=== PATIENT | female | born 1995 | race Caucasian/White ===

== ENCOUNTER 2017-08-19 14:37 | Emergency (ER) | payer OTHER ==
[2017-08-19] MEDS ORDERED: Sodium Chloride 0.9% 1,000 ML IV ONE (15:12)
[2017-08-19] MEDS ORDERED: Ondansetron 4 MG/2 ML SDV IV ONE (15:12)
[2017-08-19] MEDS ORDERED: GI Cocktail Oral Solution 30 ML PO ONE (15:12)
--- NOTE | 2017-08-19 15:13 | EDM.PDOC ---
ED HPI GENERAL MEDICAL PROBLEM - General Chief Complaint: Gastrointestinal Problem Stated Complaint: HARD TIME BREATHING, FEELS WEAK [id number] Time Seen by Provider: 08/19/17 15:07 Source of Information: Reports: Patient History Limitations: Reports: No Limitations - History of Present Illness INITIAL COMMENTS - FREE TEXT/NARRATIVE: 22 yo white Female c/o SOB w/ Nausea since this AM . Pt. states she drink alcohol last PM Onset: Today Onset Date: 08/19/17 Onset Time: 08:00 Duration: Hour(s): Location: Reports: Abdomen, Generalized Severity: Moderate Improves with: Reports: None Worsens with: Reports: None Associated Symptoms: Reports: Loss of Appetite, Nausea/Vomiting Abdomen Pain Score (Numeric/FACES): 5 - Related Data Allergies Allergy/AdvReac Type Severity Reaction Status Date / Time No Known Allergies Allergy Verified 08/19/17 14:54 Home Meds: Home Meds Baclofen [Baclofen] 10 mg PO DAILY 08/19/17 [History] DULoxetine HCl [Duloxetine HCl] 60 mg PO DAILY 08/19/17 [History] Desogestrel-Ethinyl Estradiol [Juleber 28 Day Tablet] 1 tab PO DAILY 08/19/17 [ History] Gabapentin [Neurontin] 100 mg PO DAILY 08/19/17 [History] Past Medical History - Past Surgical History HEENT Surgical History: Reports: Adenoidectomy, Tonsillectomy, Other (See Below) Other HEENT Surgeries/Procedures: wisdom teeth Social & Family History - Tobacco Use Smoking Status *Q: Never Smoker - Caffeine Use Caffeine Use: Reports: Coffee, Energy Drinks, Soda - Recreational Drug Use Recreational Drug Use: No ED ROS GENERAL - Review of Systems Review Of Systems: See Below Constitutional: Reports: No Symptoms, Weakness, Fatigue, Decreased Appetite HEENT: Reports: No Symptoms Respiratory: Reports: Shortness of Breath Cardiovascular: Reports: No Symptoms Endocrine: Reports: No Symptoms GI/Abdominal: Reports: Abdominal Pain (epigastric area) : Reports: No Symptoms Musculoskeletal: Reports: No Symptoms Skin: Reports: No Symptoms Neurological: Reports: No Symptoms Psychiatric: Reports: No Symptoms Hematologic/Lymphatic: Reports: No Symptoms Immunologic: Reports: No Symptoms ED EXAM, GENERAL - Physical Exam Exam: See Below Exam Limited By: No Limitations General Appearance: Alert, WD/WN, No Apparent Distress Eye Exam: Bilateral Eye: EOMI, PERRL Ears: Normal External Exam Nose: Normal Inspection Throat/Mouth: Normal Inspection, Normal Lips Head: Atraumatic, Normocephalic Neck: Normal Inspection, Supple, Non-Tender Respiratory/Chest: No Respiratory Distress, Lungs Clear, Normal Breath Sounds, No Accessory Muscle Use, Chest Non-Tender Cardiovascular: Normal Peripheral Pulses Peripheral Pulses: 2+: Radial (L), Radial (R), Femoral (L), Femoral (R) GI/Abdominal: Normal Bowel Sounds, Tender (epigastric ) Back Exam: Normal Inspection, Full Range of Motion Extremities: Normal Inspection, Normal Range of Motion, Non-Tender Neurological: Alert, Oriented, CN II-XII Intact Psychiatric: Normal Affect, Normal Mood Skin Exam: Warm, Dry, Intact Lymphatic: No Adenopathy Course - Vital Signs Last Recorded V/S: Last Vital Signs Temp 36.6 C 08/19/17 14:49 Pulse 93 08/19/17 14:49 Resp 16 08/19/17 14:49 BP 144/98 H 08/19/17 14:49 Pulse Ox 100 08/19/17 14:49 - Orders/Labs/Meds Orders: Active Orders 24 hr Category Date Time Status CULTURE URINE [RM] Stat Lab 08/19/17 16:20 Uncollected cefTRIAXone [Rocephin] 1 gm Med 08/19/17 16:21 Active Sodium Chloride 0.9% [Normal Saline] 50 ml IV ONETIME Medication Orders Ceftriaxone Sodium 1 gm/ (Sodium Chloride) 50 mls @ 100 mls/hr IV ONETIME ONE Stop: 08/19/17 16:50 Last Admin: 08/19/17 16:30 Dose: 100 mls/hr Labs: Laboratory Tests 08/19/17 08/19/17 08/19/17 Range/Units 15:25 15:25 15:29 WBC 11.5 H (5.0-10.0) 10^3/uL RBC 4.18 L (4.2-5.4) 10^6/uL Hgb 13.2 (12.0-16.0) g/dL Hct 39.8 (37.0-47.0) % MCV 95.2 (80-100) fL MCH 31.6 (27.0-34.0) pg MCHC 33.2 (33.0-35.0) g/dL Plt Count 287 (150-450) 10^3/uL Neut % (Auto) 83.5 H (42.2-75.2) % Lymph % (Auto) 13.1 L (20.5-50.1) % [place] % (Auto) 3.0 (2-8) % Eos % (Auto) 0.2 L (1.0-3.0) % Baso % (Auto) 0.2 (0.0-1.0) % Sodium 141 (135-145) mmol/L Potassium 3.8 (3.6-5.0) mmol/L Chloride 105 (101-111) mmol/L Carbon Dioxide 25.0 (21.0-31.0) mmol/L Anion Gap 14.8 BUN 14 (7-18) mg/dL Creatinine 0.8 (0.6-1.3) mg/dL Est Cr Clr Drug Dosing 85.76 mL/min Estimated GFR (MDRD) > 60 BUN/Creatinine Ratio 17.50 Glucose 89 (74-105) mg/dL Calcium 9.3 (8.4-10.2) mg/dl Total Bilirubin 0.7 (0.2-1.0) mg/dL AST 27 (10-42) IU/L ALT 23 (10-60) IU/L Alkaline Phosphatase 52 (42-121) IU/L Total Protein 7.7 (6.7-8.2) g/dl Albumin 4.2 (3.2-5.5) g/dl Globulin 3.5 Albumin/Globulin Ratio 1.20 Urine Color (YELLOW) Urine Appearance (CLEAR) Urine pH (5.0-9.0) Ur Specific [place] (1.005-1.030) Urine Protein (NEGATIVE) Urine Glucose (UA) (NEGATIVE) Urine Ketones (NEGATIVE) Urine Occult Blood (NEGATIVE) Urine Nitrite (NEGATIVE) Urine Bilirubin (NEGATIVE) Urine Urobilinogen (0.2-1.0) mg/dL Ur Leukocyte Esterase (NEGATIVE) Urine RBC /HPF Urine WBC (0-5/HPF) /HPF Ur Epithelial Cells /HPF Urine Bacteria (0-FEW/HPF) /HPF Urine Mucus /LPF Urine HCG, Qual Negative Urine Opiates Screen (NEGATIVE) Ur Oxycodone Screen (NEGATIVE) Urine Methadone Screen (NEGATIVE) Ur Barbiturates Screen (NEGATIVE) U Tricyclic Antidepress (NEGATIVE) Ur Phencyclidine Scrn (NEGATIVE) Ur Amphetamine Screen (NEGATIVE) U Methamphetamines Scrn (NEGATIVE) Urine MDMA Screen (NEGATIVE) U Benzodiazepines Scrn (NEGATIVE) Urine Cocaine Screen (NEGATIVE) U Marijuana (THC) Screen (NEGATIVE) 08/19/17 08/19/17 Range/Units 15:29 15:29 WBC (5.0-10.0) 10^3/uL RBC (4.2-5.4) 10^6/uL Hgb (12.0-16.0) g/dL Hct (37.0-47.0) % MCV (80-100) fL MCH (27.0-34.0) pg MCHC (33.0-35.0) g/dL Plt Count (150-450) 10^3/uL Neut % (Auto) (42.2-75.2) % Lymph % (Auto) (20.5-50.1) % [place] % (Auto) (2-8) % Eos % (Auto) (1.0-3.0) % Baso % (Auto) (0.0-1.0) % Sodium (135-145) mmol/L Potassium (3.6-5.0) mmol/L Chloride (101-111) mmol/L Carbon Dioxide (21.0-31.0) mmol/L Anion Gap BUN (7-18) mg/dL Creatinine (0.6-1.3) mg/dL Est Cr Clr Drug Dosing mL/min Estimated GFR (MDRD) BUN/Creatinine Ratio Glucose (74-105) mg/dL Calcium (8.4-10.2) mg/dl Total Bilirubin (0.2-1.0) mg/dL AST (10-42) IU/L ALT (10-60) IU/L Alkaline Phosphatase (42-121) IU/L Total Protein (6.7-8.2) g/dl Albumin (3.2-5.5) g/dl Globulin Albumin/Globulin Ratio Urine Color Yellow (YELLOW) Urine Appearance Slightly cloudy (CLEAR) Urine pH 7.0 (5.0-9.0) Ur Specific [place] 1.025 (1.005-1.030) Urine Protein 30 H (NEGATIVE) Urine Glucose (UA) Negative (NEGATIVE) Urine Ketones Negative (NEGATIVE) Urine Occult Blood Negative (NEGATIVE) Urine Nitrite Negative (NEGATIVE) Urine Bilirubin Negative (NEGATIVE) Urine Urobilinogen 0.2 (0.2-1.0) mg/dL Ur Leukocyte Esterase Trace H (NEGATIVE) Urine RBC 0-5 /HPF Urine WBC 5-10 H (0-5/HPF) /HPF Ur Epithelial Cells Many H /HPF Urine Bacteria Moderate H (0-FEW/HPF) /HPF Urine Mucus Many H /LPF Urine HCG, Qual Urine Opiates Screen Negative (NEGATIVE) Ur Oxycodone Screen Negative (NEGATIVE) Urine Methadone Screen Negative (NEGATIVE) Ur Barbiturates Screen Negative (NEGATIVE) U Tricyclic Antidepress Negative (NEGATIVE) Ur Phencyclidine Scrn Negative (NEGATIVE) Ur Amphetamine Screen Negative (NEGATIVE) U Methamphetamines Scrn Negative (NEGATIVE) Urine MDMA Screen Negative (NEGATIVE) U Benzodiazepines Scrn Negative (NEGATIVE) Urine Cocaine Screen Negative (NEGATIVE) U Marijuana (THC) Screen Negative (NEGATIVE) Meds: Medications Generic Name Dose Route Start Last Admin Trade Name Freq PRN Reason Stop Dose Admin Ceftriaxone Sodium 1 gm/ 50 mls @ 100 mls/hr 08/19/17 16:21 08/19/17 16:30 Sodium Chloride IV 08/19/17 16:50 100 mls/hr ONETIME ONE Administration Discontinued Medications Generic Name Dose Route Start Last Admin Trade Name Freq PRN Reason Stop Dose Admin Al Hydroxide/Mg Hydroxide 30 ml 08/19/17 15:12 08/19/17 15:33 Gi Cocktail PO 08/19/17 15:13 30 ml ONETIME ONE Administration Sodium Chloride 1,000 mls @ 999 mls/hr 08/19/17 15:12 08/19/17 15:38 Normal Saline IV 08/19/17 16:12 999 mls/hr .BOLUS ONE Administration Ondansetron HCl 4 mg 08/19/17 15:12 08/19/17 15:34 Zofran IV 08/19/17 15:13 4 mg ONETIME ONE Administration Departure - Departure Time of Disposition: 16:34 Disposition: Home, Self-Care 01 Condition: Good Clinical Impression: UTI, Urinary tract infectious disease - Discharge Information Referrals: PCP,None [Primary Care Provider] - Forms: ED Department Discharge Additional Instructions: Rest Increase intake of Fluids ( Cranberry Juice / Water) Take the Oral Antibiotic as prescribed and complete: AMOXIL 500mg BID # 20 F/U w/ PCP in 1 week for urine re-check - My Orders Last 24 Hours: My Active Orders 08/19/17 16:20 CULTURE URINE [RM] Stat 08/19/17 16:21 cefTRIAXone [Rocephin] 1 gm Sodium Chloride 0.9% [Normal Saline] 50 ml IV ONETIME - Assessment/Plan Last 24 Hours: My Active Orders 08/19/17 16:20 CULTURE URINE [RM] Stat 08/19/17 16:21 cefTRIAXone [Rocephin] 1 gm Sodium Chloride 0.9% [Normal Saline] 50 ml IV ONETIME
[2017-08-19 15:57] LABS: CHLORIDE,CL 105 mmol/L (101-111); SODIUM,NA 141 mmol/L (135-145)
[2017-08-19] MEDS ORDERED: cefTRIAXone 1 GM in Sodium Chloride 0.9% 50 ML IV ONE (16:21)
== END 2017-08-19 17:15 | disposition home or self-care (01) ==
LOC: DL.ED 14:37
DX: N39.0 Urinary tract infection, site not specified (principal); Z79.899 Other long term (current) drug therapy
CPT/HCPCS: 36415; 80053; 80305; 81001; 81025; 85025; 87086; 96361; 96365; 96375; 99284; A9270; J0696; J2405; J7030; J7050

== ENCOUNTER 2019-04-02 20:40 | Observation (INO) | payer OTHER ==
[2019-04-02 21:38] LABS: ANION GAP 14.3; CHLORIDE,CL 103 mmol/L (101-111); SODIUM,NA 135 mmol/L (135-145)
[2019-04-02] MEDS: Oxytocin/Normal Saline 30 UNIT/500 ML BAG IV SCH (22:15)
[2019-04-02] MEDS ORDERED: HYDROmorphone 1 MG/ML Syringe IVPUSH ONE (22:33)
[2019-04-02] MEDS ORDERED: Lactated Ringers 1,000 ML IV ONE (22:48)
[2019-04-02] MEDS ORDERED: HYDROmorphone 1 MG/ML Syringe IVPUSH PRN (22:52)
[2019-04-02] MEDS ORDERED: Ondansetron 4 MG/2 ML SDV IV PRN (22:54)
[2019-04-02] MEDS ORDERED: Acetaminophen/oxyCODONE 325-5 MG Tab PO PRN (22:56)
--- NOTE | 2019-04-03 01:08 | EDM.PDOC ---
ED HPI GENERAL MEDICAL PROBLEM - General Chief Complaint: [employer] Problem Stated Complaint: LOSING A LOT OF BLOOD-MISCARRIAGE Time Seen by Provider: 04/02/19 21:00 Source of Information: Reports: Patient, RN History Limitations: Reports: No Limitations - History of Present Illness INITIAL COMMENTS - FREE TEXT/NARRATIVE: ED with c/o heavy vaginal bleeding. Patient 2 US on Sunday. No FHT and small gestational size, Seen by Dr Browne yesterday. On cytotec every 6-8 hours as needed. Last at 830 tonight. Saturated large pad x 3 between 6 and 7 tonight. States feels like blood gushing when standing. Dizzy if moves to fast. No fever or chills . LMP 01/02. Brought specimen cup with passed fetus Treatments [employer]: Reports: NSAIDS Lower Abdominal Pain Score (Numeric/FACES): 9 - Related Data Allergies Allergy/AdvReac Type Severity Reaction Status Date / Time No Known Allergies Allergy Verified 04/02/19 22:31 Home Meds: Home Meds Gabapentin [Neurontin] 600 mg PO DAILY 08/19/17 [History] FLUoxetine [PROzac] 20 mg PO DAILY 04/03/19 [History] Misoprostol [Cytotec] 200 mcg PO ASDIRECTED 04/03/19 [History] PNV95/Ferrous Fumarate/FA [ Vitamin Tablet] 1 each PO DAILY 04/03/19 [ History] buPROPion HCl [Wellbutrin Xl] 150 mg PO DAILY 04/03/19 [History] Past Medical History HEENT History: Reports: None [employer] History: Reports: , Spontaneous - Past Surgical History HEENT Surgical History: Reports: Adenoidectomy, Tonsillectomy, Other (See Below) Other HEENT Surgeries/Procedures: wisdom teeth Social & Family History - Family History Family Medical History: Noncontributory - Tobacco Use Smoking Status *Q: Never Smoker Second Hand Smoke Exposure: No - Caffeine Use Caffeine Use: Reports: None - Recreational Drug Use Recreational Drug Use: No ED ROS GENERAL - Review of Systems Review Of Systems: ROS reveals no pertinent complaints other than HPI. ED EXAM - Physical Exam Exam: See Below Exam Limited By: No Limitations General Appearance: Alert, No Apparent Distress Eye Exam: Bilateral Eye: EOMI Ears: Normal External Exam Nose: Normal Inspection, Nasal Flaring Throat/Mouth: Normal Inspection, Normal Voice Head: Atraumatic, Normocephalic Neck: Normal Inspection Respiratory/Chest: No Respiratory Distress, Lungs Clear GI/Abdominal Exam: Normal Bowel Sounds, Soft, Tender (Female) Exam: Normal External Exam, Tissue Present in Cervix/Vagina, Vaginal Bleeding ( moderate in vaginal vault. large clot tissue, easily removed from vault with ring forecep. ) Extremities: Normal Inspection, Normal Range of Motion Neurological: Alert, Oriented Skin Exam: Warm, Dry, Normal Color Course - Vital Signs Last Recorded V/S: Last Vital Signs Temp 98.4 F 04/02/19 23:30 Pulse 76 04/02/19 23:30 Resp 16 04/02/19 23:30 BP 105/64 04/02/19 23:30 Pulse Ox 99 04/02/19 23:30 - Orders/Labs/Meds Orders: Active Orders 24 hr Category Date Time Status Orthostatic Vital Signs [RC] ASDIRECTED Care 04/02/19 21:04 Active Nothing Per Oral Diet [DIET] Diet 04/02/19 Breakfast Active OB Follow Up 1st Gest [US] Routine Exams 04/03/19 08:00 Ordered CBC W/O DIFF,HEMOGRAM [HEME] Routine Lab 04/03/19 06:00 Ordered Acetaminophen/oxyCODONE [Percocet 325-5 MG] Med 04/02/19 22:56 Active 1 tab PO Q4H PRN HYDROmorphone [Dilaudid] Med 04/02/19 22:52 Active 1 mg IVPUSH Q3H PRN Ondansetron [Zofran] Med 04/02/19 22:54 Active 4 mg IV Q4H PRN Oxytocin/Normal Saline [Pitocin in NS 30 UNIT/500 ML] Med 04/02/19 22:00 Active 30 unit in 500 ml IV CONTINUOUS Medication Orders Hydromorphone HCl (Dilaudid) 1 mg IVPUSH Q3H PRN PRN Reason: Pain Oxytocin/Sodium Chloride (Pitocin In Ns 30 Unit/500 Ml) 30 unit in 500 mls @ 100 mls/hr IV CONTINUOUS RIVER; Protocol Last Admin: 04/02/19 22:15 Dose: 100 mls/hr, 100 mls/hr Ondansetron HCl (Zofran) 4 mg IV Q4H PRN PRN Reason: Nausea/Vomiting Oxycodone/Acetaminophen (Percocet 325-5 Mg) 1 tab PO Q4H PRN PRN Reason: Pain Labs: Laboratory Tests 04/02/19 04/02/19 04/02/19 Range/Units 21:11 21:11 21:11 WBC 9.8 (5.0-10.0) 10^3/uL RBC 3.80 L (4.2-5.4) 10^6/uL Hgb 12.4 (12.0-16.0) g/dL Hct 37.2 (37.0-47.0) % MCV 97.9 (80-100) fL MCH 32.6 (27.0-34.0) pg MCHC 33.3 (33.0-35.0) g/dL Plt Count 229 (150-450) 10^3/uL Neut % (Auto) 57.8 (42.2-75.2) % Lymph % (Auto) 33.8 (20.5-50.1) % [place] % (Auto) 6.5 (2-8) % Eos % (Auto) 1.7 (1.0-3.0) % Baso % (Auto) 0.2 (0.0-1.0) % Sodium 135 (135-145) mmol/L Potassium 3.3 L (3.6-5.0) mmol/L Chloride 103 (101-111) mmol/L Carbon Dioxide 21.0 (21.0-31.0) mmol/L Anion Gap 14.3 BUN 12 (7-18) mg/dL Creatinine 0.7 (0.6-1.3) mg/dL Est Cr Clr Drug Dosing 106.09 mL/min Estimated GFR (MDRD) > 60 BUN/Creatinine Ratio 17.14 Glucose 80 (74-105) mg/dL Calcium 8.2 L (8.4-10.2) mg/dl Total Bilirubin 0.8 (0.2-1.0) mg/dL AST 23 (10-42) IU/L ALT 19 (10-60) IU/L Alkaline Phosphatase 53 (42-121) IU/L Total Protein 6.8 (6.7-8.2) g/dl Albumin 3.9 (3.2-5.5) g/dl Globulin 2.9 Albumin/Globulin Ratio 1.34 Blood Type B POSITIVE Gel Antibody Screen Negative Meds: Medications Generic Name Dose Route Start Last Admin Trade Name Freq PRN Reason Stop Dose Admin Hydromorphone HCl 1 mg 04/02/19 22:52 Dilaudid IVPUSH Q3H PRN Pain Oxytocin/Sodium Chloride 30 unit in 500 mls @ 100 mls/hr 04/02/19 22:00 04/02 22:15 Pitocin In Ns 30 Unit/500 Ml IV 100 mls/hr CONTINUOUS RIVER 100 mls/hr Administration Protocol Ondansetron HCl 4 mg 04/02/19 22:54 Zofran IV Q4H PRN Nausea/Vomiting Oxycodone/Acetaminophen 1 tab 04/02/19 22:56 Percocet 325-5 Mg PO Q4H PRN Pain Discontinued Medications Generic Name Dose Route Start Last Admin Trade Name Freq PRN Reason Stop Dose Admin Hydromorphone HCl 1 mg 04/02/19 22:33 04/02/19 22:42 Dilaudid IVPUSH 04/02/19 22:34 1 mg ONETIME ONE Administration Oxytocin 10 unit/ Lactated 1,001 mls @ 150 mls/hr 04/02/19 21:45 04/03/19 00: 05 Ringer's IV 04/03/19 04:25 Not Given ASDIRECTED ONE Lactated Ringer's 1,000 mls @ 999 mls/hr 04/02/19 22:48 04/02/19 22:50 Ringers, Lactated IV 04/02/19 23:48 999 mls/hr BOLUS ONE Administration - Re-Assessments/Exams Free Text/Narrative Re-Assessment/Exam: TC Dr Browne . Patient to be admitted for observation of continued bleeding following miscarriage ,repeat hemoglobin in am. Initiate on Pitocin and IVF. Departure - Departure Time of Disposition: 22:15 Disposition: Refer to Observation Condition: Good Clinical Impression: Incomplete - Discharge Information *PRESCRIPTION DRUG MONITORING PROGRAM REVIEWED*: No *COPY OF PRESCRIPTION DRUG MONITORING REPORT IN PATIENT SARAH: Not Applicable Referrals: PCP,None [Primary Care Provider] - Forms: ED Department Discharge - My Orders Last 24 Hours: My Active Orders 04/02/19 21:04 Orthostatic Vital Signs [RC] ASDIRECTED 04/02/19 22:00 Oxytocin/Normal Saline [Pitocin in NS 30 UNIT/500 ML] 30 unit in 500 ml IV CONTINUOUS - Assessment/Plan Last 24 Hours: My Active Orders 04/02/19 21:04 Orthostatic Vital Signs [RC] ASDIRECTED 04/02/19 22:00 Oxytocin/Normal Saline [Pitocin in NS 30 UNIT/500 ML] 30 unit in 500 ml IV CONTINUOUS
[2019-04-03] MEDS: Oxytocin/Normal Saline 30 UNIT/500 ML BAG IV SCH (03:05)
--- NOTE | 2019-04-03 09:43 | US ---
CLINICAL HISTORY: 23-year-old female. Recent "miscarriage" (LMP 02 January 2019). Please check for products of conception. INTERPRETATION: Midline uterus slightly enlarged and retroverted with a 2 cm diameter homogeneously dense central endometrium. No blood or retained products of conception identified in the lumen of the endometrial canal. No gestational sac or pole. No myometrial fibroid mass lesion. Symmetric ovaries with physiologic follicular type cysts in the periphery (largest cyst left ovary approximately 2 x 3 cm). Left ovary measures 3.02 cm L x 2.04 cm W x 1.39 cm AP diameter. Right ovary measures 3.5 cm L x 5.17 cm W x 1.79 cm AP. CONCLUSION: No retained products of conception identified.
--- NOTE | 2019-04-04 09:38 | HP ---
HISTORY OF PRESENT ILLNESS: This patient is a 23-year-old 1, para 0 patient, referred to us from [facility]. Please see my dictation from the clinic of 04/01/2019. Unfortunately, she did have a demise and the size was approximately 8 weeks 5 days' gestation on one ultrasound and 9 weeks 3 days' gestation measurements on another ultrasound. Those 2 ultrasounds were done on 03/28/2019. The patient is known to be Rh positive. She has had some slight cramping and slight spotting off and on for this past 6 to 7 days or so. When I saw her in the clinic on 04/01/2019, the patient and I had decided to proceed with Cytotec medical evacuation of the uterus. This was commenced on Sunday morning, 04/02/2019. The patient and I have kept in close contact on the telephone and she did have my personal cell phone number. She did come to the emergency room when the bleeding got much heavier on the evening of 04/02/2019, and also, she was having rather significant cramping. The patient was admitted to the floor from the emergency room and I did see the patient at about 10 p.m. on 04/02/2019. The cervix was open slightly. There was a moderate amount of blood in the vaginal vault. The uterus felt about 5- to 6-week size. Her vital signs remained very stable with blood pressures in the 110/58 range and 105/53 range and pulse rates of 79. Her admission hemoglobin was 12.4. PHYSICAL EXAMINATION: Lungs: Clear. Heart: Regular rhythm without murmur. Abdomen: Soft and slightly tender in each lower quadrant. Extremities: Negative. Pelvic: As described above. IMPRESSION: We felt that the patient indeed was in the process of miscarriage and since her bleeding was actually much less than it had been earlier and since her vital signs were very stable and her hemoglobin was 12.4, that we would observe her for a few more hours and I felt clinically there was perhaps a 30% chance the patient might need a D and C during the night or early a.m. on 04/03/2019. Our plan was also to repeat her hemoglobin in the morning as well as obtain OB ultrasound to rule out any products of conception. The patient has had a stable night thus far. We will continue to observe her very closely and the permit has been signed for D and C if necessary. All of her questions have been answered. [facility] /[id number] cc: Sherrill Zeng NP [facility]
--- NOTE | 2019-04-04 09:47 | DISCH ---
She was admitted on 04/02/2019 for observation and discharged home today on 04/03/2019. HISTORY OF PRESENT ILLNESS: Yfn has had a very stable night. Her bleeding that she had earlier has definitely considerably subsided during the night. Her cramping is much less and she only has minimal slight cramping this morning on rounds. Her vital signs have remained very stable and have actually improved. Her hemoglobin early this morning on 04/03/2019 reveals it to be 11.2 and she did have considerable crystalloid fluids during the night, so she probably has some degree of hemodilution. The patient did have uterine ultrasound earlier this morning that I have closely reviewed along with radiologist, Dr. Reagan Hawkins, and it is felt that no products of conception are seen inside the uterus. The patient has a slight amount of bleeding as we would expect still. She has a slight amount of cramping, but in general is doing much better. The patient's blood type is Rh positive. IMPRESSION: I have had a long discussion at the bedside with the patient this morning and we do feel that this represents a spontaneous complete miscarriage at 9 weeks 3 days' gestation by size and the patient was at approximately 12 weeks' gestation by dates. She is Rh positive and does not need RhoGAM. She is very stable and it appears at this time that D and C is unnecessary and not appropriate. I did inform her that clinically, there is perhaps a 10% chance that she still could need a D and C in the future if there was any changing or worsening of bleeding or cramping. Other discharge instructions were to avoid intercourse for approximately 3 weeks and to call us once if any fever, unusual pain, unusual discharge, or questions or problems whatsoever. DISCHARGE MEDICATIONS: She will resume her Cytotec 200 mcg p.o. every 6 to 8 hours for the next 2 days. She also will resume her gabapentin and her fluoxetine and her Wellbutrin that she is on. She will have healthy well- balanced nutritional measures as well as adequate hydration and continue to get adequate rest. She is discharged now in good condition. Her diet is regular. I have emphasized the importance to see me in the clinic for a post hospital followup exam on April 14 or . The patient states that her work schedule might possibly not permit that to happen. I did urge her to please give me a telephone progress report if she does not come in for an appointment. She does have my personal cell phone number and will keep us informed of course. She will also keep any other on-call doctor informed while I am out of town. FINAL DIAGNOSIS: Spontaneous complete miscarriage. I have also asked her to avoid getting over the next 3 to 4 months if at all possible. She may possibly try to conceive again in July. [facility] /[id number] cc: ANDRIA Tirado [facility]
== END 2019-04-03 11:15 | disposition home or self-care (01) ==
LOC: DL.ED 20:40 → DL.MS 21:51
PROVIDERS: ADMIT Obstetrics & Gynecology; ATTEND Obstetrics & Gynecology
DX: O03.9 Complete or unspecified spontaneous abortion without complication (principal); Z79.899 Other long term (current) drug therapy
CPT/HCPCS: 36415; 76816; 80053; 85025; 85027; 86850; 86900; 86901; 96365; 96366; 96375; 96376; 99284; J1170; J2590; J7120; G0378

== ENCOUNTER 2019-10-26 10:21 | Emergency (ER) | payer BC, OTHER ==
[2019-10-26] MEDS: Ondansetron 4 MG/2 ML SDV IV ONE (11:09)
[2019-10-26 11:18] LABS: CHLORIDE,CL 105 mmol/L (101-111); SODIUM,NA 135 mmol/L (135-145)
--- NOTE | 2019-10-26 12:42 | EDM.PDOC ---
Scribed by Mervat Kebede 10/26/19 1241 for Michel Richardson PA ED HPI GENERAL MEDICAL PROBLEM - General Chief Complaint: Gastrointestinal Problem Time Seen by Provider: 10/26/19 11:00 Source of Information: Reports: Patient, RN, RN Notes Reviewed History Limitations: Reports: No Limitations - History of Present Illness INITIAL COMMENTS - FREE TEXT/NARRATIVE: Patient is a 24-year-old female who presents with nausea that started this A.M. She has body aches today. Diarrhea started last night and today. She is on Amoxicillin due to sinus infection. Patient is 22 weeks . Onset: Today Duration: Getting Worse Location: Reports: Abdomen Quality: Reports: Ache Severity: Moderate Improves with: Reports: None Worsens with: Reports: None Associated Symptoms: Reports: No Other Symptoms - Related Data Allergies Allergy/AdvReac Type Severity Reaction Status Date / Time No Known Allergies Allergy Verified 10/26/19 11:23 Home Meds: Home Meds Gabapentin [Neurontin] 600 mg PO DAILY 08/19/17 [History] FLUoxetine [PROzac] 20 mg PO DAILY 04/03/19 [History] Misoprostol [Cytotec] 200 mcg PO ASDIRECTED 04/03/19 [History] Pnv No.95/Ferrous Fum/Folic AC [ Vitamin Tablet] 1 each PO DAILY [History] buPROPion HCl [Wellbutrin Xl] 150 mg PO DAILY 04/03/19 [History] Past Medical History HEENT History: Reports: None 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 ED EXAM, GI/ABD - Physical Exam Exam: See Below Exam Limited By: No Limitations General Appearance: Alert, WD/WN, No Apparent Distress Eyes: Bilateral: Normal Appearance Ears: Normal External Exam, Normal Canal, Hearing Grossly Normal, Normal TMs Nose: Normal Inspection, Normal Mucosa, No Blood Throat/Mouth: Normal Inspection, Normal Lips, Normal Teeth, Normal Gums, Normal Oropharynx, Normal Voice, No Airway Compromise Head: Atraumatic, Normocephalic Neck: Normal Inspection, Supple, Non-Tender, Full Range of Motion Respiratory/Chest: No Respiratory Distress, Lungs Clear, Normal Breath Sounds, No Accessory Muscle Use, Chest Non-Tender Cardiovascular: Normal Peripheral Pulses, Regular Rate, Rhythm, No Edema, No Gallop, No JVD, No Murmur, No Rub GI/Abdominal Exam: Other (diffuse abdominal pain) (Female) Exam: Deferred Rectal (Female) Exam: Deferred Back Exam: Normal Inspection, Full Range of Motion, NT Extremities: Normal Inspection, Normal Range of Motion, Non-Tender, Normal Capillary Refill, No Pedal Edema Neurological: Alert, Oriented, CN II-XII Intact, Normal Cognition, Normal Gait, Normal Reflexes, No Motor/Sensory Deficits Psychiatric: Normal Affect Skin Exam: Warm, Dry, Intact, Normal Color, No Rash Lymphatic: No Adenopathy Course - Vital Signs Last Recorded V/S: Last Vital Signs Temp 37.0 C 10/26/19 11:17 Pulse 77 10/26/19 11:17 Resp 20 10/26/19 11:17 BP 116/57 L 10/26/19 11:17 Pulse Ox 99 10/26/19 11:17 - Orders/Labs/Meds Orders: Active Orders 24 hr Category Date Time Status CULTURE URINE [RM] Urgent Lab 10/26/19 12:05 Received Labs: Laboratory Tests 10/26/19 10/26/19 10/26/19 Range/Units 10:52 10:52 12:05 WBC 14.1 H (5.0-10.0) 10^3/uL RBC 3.78 L (4.2-5.4) 10^6/uL Hgb 12.4 (12.0-16.0) g/dL Hct 36.3 L (37.0-47.0) % MCV 96.0 (80-100) fL MCH 32.8 (27.0-34.0) pg MCHC 34.2 (33.0-35.0) g/dL Plt Count 243 (150-450) 10^3/uL Neut % (Auto) 88.3 H (42.2-75.2) % Lymph % (Auto) 7.6 L (20.5-50.1) % [place] % (Auto) 3.4 (2-8) % Eos % (Auto) 0.6 L (1.0-3.0) % Baso % (Auto) 0.1 (0.0-1.0) % Sodium 135 (135-145) mmol/L Potassium 4.0 (3.6-5.0) mmol/L Chloride 105 (101-111) mmol/L Carbon Dioxide 20.0 L (21.0-31.0) mmol/L Anion Gap 14.0 BUN 12 (7-18) mg/dL Creatinine 0.6 (0.6-1.3) mg/dL Est Cr Clr Drug Dosing TNP Estimated GFR (MDRD) > 60 BUN/Creatinine Ratio 20.00 Glucose 77 (74-105) mg/dL Calcium 8.1 L (8.4-10.2) mg/dl Total Bilirubin 1.4 H (0.2-1.0) mg/dL AST 48 H (10-42) IU/L ALT 38 (10-60) IU/L Alkaline Phosphatase 58 (42-121) IU/L Total Protein 7.1 (6.7-8.2) g/dl Albumin 3.4 (3.2-5.5) g/dl Globulin 3.7 Albumin/Globulin Ratio 0.92 Urine Color Yellow (YELLOW) Urine Appearance Slightly cloudy (CLEAR) Urine pH 6.0 (5.0-9.0) Ur Specific [place] 1.025 (1.005-1.030) Urine Protein Negative (NEGATIVE) Urine Glucose (UA) Negative (NEGATIVE) Urine Ketones Trace H (NEGATIVE) Urine Occult Blood Negative (NEGATIVE) Urine Nitrite Negative (NEGATIVE) Urine Bilirubin Negative (NEGATIVE) Urine Urobilinogen 0.2 (0.2-1.0) mg/dL Ur Leukocyte Esterase Trace H (NEGATIVE) Urine RBC 0-5 /HPF Urine WBC 0-5 (0-5/HPF) /HPF Ur Epithelial Cells Moderate H (NOT SEEN) /HPF Urine Bacteria Moderate H (0-FEW/HPF) /HPF Urine Mucus Many H (NOT SEEN) /LPF Meds: Medications Discontinued Medications Generic Name Dose Route Start Last Admin Trade Name Freq PRN Reason Stop Dose Admin Ondansetron HCl 4 mg 10/26/19 10:46 10/26/19 11:09 Zofran IV 10/26/19 10:47 4 mg ONETIME ONE Administration - Re-Assessments/Exams Free Text/Narrative Re-Assessment/Exam: 10/26/19 11:13 Polly Jade reported heart tones 130 right at the umbilicus. Departure - Departure Time of Disposition: 12:36 Disposition: DC/Tfer to Acute Hospital 02 Condition: Fair Clinical Impression: Nausea vomiting and diarrhea Leukocytosis Qualifiers: Leukocytosis type: unspecified Qualified Code(s): D72.829 - Elevated white blood cell count, unspecified Qualifiers: Weeks of gestation: 22 weeks Qualified Code(s): Z3A.22 - 22 weeks gestation of - Discharge Information *PRESCRIPTION DRUG MONITORING PROGRAM REVIEWED*: Not Applicable *COPY OF PRESCRIPTION DRUG MONITORING REPORT IN PATIENT SARAH: Not Applicable Referrals: Sherrill Zeng ROLL UP HELPER [Primary Care Provider] - Forms: Interfacility Transfer EMTALA Care Plan Goals: Discussed the examination, lab and history results with Dr. Santiago. Dr. Santiago accepted the patient for continued evaluation and management. The patient will be transported by [facility]. Sepsis Event Note - Focused Exam Vital Signs: Vital Signs Temp Pulse Resp BP Pulse Ox 10/26/19 11:17 37.0 C 77 20 116/57 L 99 Date Exam was Performed: 10/26/19 Time Exam was Performed: 12:36 - My Orders Last 24 Hours: My Active Orders 10/26/19 12:05 CULTURE URINE [RM] Urgent - Assessment/Plan Last 24 Hours: My Active Orders 10/26/19 12:05 CULTURE URINE [RM] Urgent I have read and agree with the documentation that has been completed regarding this visit. By signing this record, I attest that the documentation was completed in my physical presence and is an accurate record of the encounter.
[2019-10-26] MEDS: Sodium Chloride 0.9% 1,000 ML IV SCH (12:52)
== END 2019-10-26 13:10 ==
LOC: DL.OBCHECK 10:21 → DL.ED 10:21 → EDSTATUS 10:29 → DL.ED 13:10
DX: O21.2 Late vomiting of pregnancy (principal); O99.89 Other specified diseases and conditions complicating pregnancy, childbirth and the puerperium; R19.7 Diarrhea, unspecified; O99.112 Other diseases of the blood and blood-forming organs and certain disorders involving the immune mechanism complicating pregnancy, second trimester; D72.829 Elevated white blood cell count, unspecified; Z3A.22 22 weeks gestation of pregnancy
CPT/HCPCS: 36415; 80053; 81001; 85025; 87086; 87804; 96374; 99285; J2405; J7030

== ENCOUNTER 2020-02-16 00:04 | Inpatient (IN) | payer BC, OTHER ==
[2020-02-16] MEDS: Misoprostol 25 MCG (1/4 of 100 MCG) Tab VAG PRN ×3 (01:17→09:38)
[2020-02-16] MEDS ORDERED: Sodium Chloride 0.9% 10 ML Syringe FLUSH PRN (01:22)
[2020-02-16] MEDS ORDERED: Misoprostol 400 MCG (4 X 100 MCG TAB) RECTAL PRN (01:22)
[2020-02-16] MEDS ORDERED: Tranexamic Acid 1,000 MG in Sodium Chloride 0.9% 100 ML IV PRN (01:22)
[2020-02-16] MEDS ORDERED: Carboprost Tromethamine 250 MCG/1 ML Amp IM PRN (01:22)
[2020-02-16] MEDS ORDERED: Methylergonovine 0.2 MG/1 ML Amp IM PRN (01:22)
[2020-02-16] MEDS ORDERED: Lactated Ringers 1,000 ML IV ONE ×2 (01:22→10:25)
[2020-02-16] MEDS ORDERED: Lidocaine 1% 30 ML SDV INJECT PRN (01:22)
[2020-02-16] MEDS ORDERED: Acetaminophen 325 MG Tab PO PRN ×2 (01:22)
[2020-02-16] MEDS ORDERED: Ondansetron 4 MG/2 ML SDV IVPUSH PRN ×3 (01:22→15:46)
[2020-02-16] MEDS ORDERED: Oxytocin/Normal Saline 30 UNIT/500 ML BAG IV SCH ×2 (01:30)
[2020-02-16] MEDS ORDERED: fentaNYL 100 MCG/2 ML SDV IVPUSH PRN (02:02)
[2020-02-16] MEDS ORDERED: hydrOXYzine HCl 25 MG Tab PO ONE (02:02)
--- NOTE | 2020-02-16 02:03 | OBOUT ---
DATE: 02/16/2020 DATE AND TIME OF NST: 02/16/2020. Time 0022 to 0042. REASON FOR NST: 1. Intrauterine at 40-1/7 weeks. 2. GBS negative. 3. History of low-lying placenta, resolved. 4. History of mood disorder, on fluoxetine and Wellbutrin during the . 5. History of chronic pain, on gabapentin. Use of this medicine has been described to her in the past. 6. G2, P0-0-1-0. NST INTERPRETATION: During this time period, heart tone baseline is approximately 130 to 135, and at least two 15 x 15 beats per minute accelerations, making this strip reactive as well as reassuring. Tocometer reveals no obvious evidence of contractions. Blood pressure is 126/72, heart rate 98, the patient is afebrile, temperature 98.6. ASSESSMENT: 1. Nonstress test, reactive and reassuring. 2. Tocometer without contractions. Shortly after NST was performed, verbal and written consents were obtained for Cytotec administration and subsequent 25 mcg of Cytotec was placed vaginally with her cervix being 1.5 cm, 80% effaced, 0 to -1 station, vertex suspected, and bag of water was felt. PLAN: Please see admit history and physical done in through [facility]. For this, records were called for, reviewed, and supplemented by patient history. Review of systems was fully reviewed today and otherwise notable for mild cramping over the weekend. Otherwise, no contractions, spotting, bleeding, leaking or other concerns elicited. [facility] /[id number]
--- NOTE | 2020-02-16 11:33 | PN ---
DATE: 02/16/2020 SUBJECTIVE: The patient has had some back pain issues. She has been sitting in the tub off and on. OBJECTIVE: Vital Signs: Blood pressure 129/68, heart rate 97, heart tones in the 130s range and felt to be reactive and reassuring. Tocometer reveals contractions every 3 to 4 minutes. VAGINAL EXAM: Reveals her to be 2+ cm, 80% effaced, 0 station, vertex suspected, and 25 mcg of Cytotec was placed vaginally. ASSESSMENT AND PLAN: Intrauterine at 40 and 1/7 weeks by 10 and 2/7 weeks ultrasound, GBS negative, G2, P0-0-1-0, with history of low lying placenta that has resolved. Mood disorder, on Wellbutrin and Prozac, as well as history of chronic low back pain, on gabapentin, and discussed use of this in both at [facility], myself, and recently. She is now status post Cytotec x3 with the 3rd dose given as above. We will continue to follow clinically and closely. She is making some cervical change and we will follow thereafter. The patient understands and agrees with the above treatment plan. [facility] /[id number]
[2020-02-16] MEDS ORDERED: Oxytocin/Normal Saline 30 UNIT/500 ML BAG ONE ×2 (14:09→15:09)
[2020-02-16] MEDS ORDERED: Acetaminophen/oxyCODONE 325-5 MG Tab PO PRN (14:25)
[2020-02-16] MEDS ORDERED: ceFAZolin 2 GM in Premix Bag 1 BAG IV ONE (14:25)
[2020-02-16] MEDS ORDERED: Citric Acid/Sodium Citrate Solution 30 ML Cup PO ONE (14:25)
[2020-02-16] MEDS ORDERED: diphenhydrAMINE 50 MG/ML SDV IVPUSH PRN ×2 (14:25→15:46)
[2020-02-16] MEDS ORDERED: ePHEDrine 50 MG/ML SDV IVPUSH PRN (14:25)
[2020-02-16] MEDS ORDERED: Naloxone 2 MG/2 ML Syringe IVPUSH PRN ×2 (14:25→15:46)
[2020-02-16] MEDS ORDERED: Lactated Ringers 1,000 ML IV SCH (14:30)
[2020-02-16] MEDS ORDERED: Propofol 200 MG/20 ML SDV IV ONE (14:30)
[2020-02-16] MEDS ORDERED: Succinylcholine 200 MG/10 ML MDV IV ONE (14:30)
[2020-02-16] MEDS ORDERED: Tranexamic Acid 1,000 MG in Sodium Chloride 0.9% 100 ML IV ONE (14:45)
[2020-02-16] MEDS ORDERED: Methylergonovine 0.2 MG/1 ML Amp ONE ×2 (14:49)
[2020-02-16] MEDS ORDERED: Misoprostol 400 MCG (4 X 100 MCG TAB) ONE (14:53)
[2020-02-16] MEDS ORDERED: Carboprost Tromethamine 250 MCG/1 ML Amp ONE (14:54)
[2020-02-16] MEDS ORDERED: Methylergonovine 0.2 MG/1 ML Amp IM ONE (14:55)
[2020-02-16] MEDS ORDERED: Misoprostol 400 MCG (4 X 100 MCG TAB) RECTAL ONE (14:57)
[2020-02-16] MEDS ORDERED: Carboprost Tromethamine 250 MCG/1 ML Amp IM ONE (15:00)
[2020-02-16] MEDS ORDERED: fentaNYL 250 MCG/5 ML SDV IV ONE (15:00)
--- NOTE | 2020-02-16 15:09 | PN ---
DATE: 02/16/2020 SUBJECTIVE: The patient has been feeling her contractions, they have been off and on. OBJECTIVE: heart tones in the 140s range, felt to be reactive and reassuring. Tocometer difficult to read contractions lying on her side. Vaginal exam reveals her to be 3 cm, 80% to 90% effaced. Artificial rupture of membranes done after discussion with the patient yielding bloody-type fluid. ASSESSMENT AND PLAN: 1. Intrauterine at 40 and 1/7 weeks by 10 and 2/7 weeks ultrasound, now status post Cytotec x2 and artificial rupture of membranes as above. 2. Vaginal bleeding. This is possibly related to cervical friability and cervical change versus possible serious etiology such as vasa previa or abruption. At this point in time, I did discuss with patient making her n.p.o., calling the OR crew to be available and ready in stat fashion and following status very closely as well as her vaginal bleeding. New chux was placed and we will re-evaluate serially and continue to follow clinically and closely at this point in time. The patient understands and agrees with the above treatment plan. [facility] /[id number] [place]
[2020-02-16] MEDS ORDERED: Ondansetron 4 MG/2 ML SDV IV ONE (15:15)
--- NOTE | 2020-02-16 15:15 | PN ---
DATE: 02/16/2020 SUBJECTIVE: The patient's pain suddenly got worse, rated 8/10, felt in the lower abdomen, worse with her contractions as well as at other times. OBJECTIVE: heart tones variability has decreased, baseline has increased, and there has been at least 2 late decelerations in the last 20 minutes. Vaginal exam reveals her to be 3 cm, 80% effaced. Clot noted in the vaginal vault and more bleeding was noted on the Chux. ASSESSMENT AND PLAN: Intrauterine at 40 and 1/7 weeks by 10 and 2/7 weeks with abnormal vaginal bleeding and concerns with status. Therefore, I have discussed with the patient proceeding with primary low transverse section. I did discuss the risks, benefits, alternatives, and complications of procedure including, but not limited to, infection, bleeding, damage to internal organs such as bowel, bladder, tubes, uterus, ovaries, and sometimes fetus rarely needing a blood transfusion or further surgery; and even rarer maternal or . She understands, agrees, and wishes to proceed. Verbal consent was obtained, and questions were answered. At the current time of dictation, there was another patient in the second stage of labor. We are trying to manage this prior to going to the OR due to staffing concerns and we will proceed cautiously. We will continue watching status closely at this point in time. Did discuss with the patient potentially doing a spinal versus general anesthetic as well based on status and with concerns will do general anesthesia. [facility] /[id number] [place]
[2020-02-16] MEDS ORDERED: Ketorolac 30 MG/ML SDV IVPUSH ONE (15:30)
[2020-02-16] MEDS ORDERED: diphenhydrAMINE 25 MG Tab PO PRN (15:46)
[2020-02-16] MEDS: Morphine PF 30 MG/30 ML PCA Vial IV SCH (16:08)
[2020-02-16] MEDS: Simethicone 80 MG Tab.Chew PO SCH ×2 (19:48→21:40)
[2020-02-16] MEDS: Ketorolac 30 MG/ML SDV IVPUSH SCH (21:36)
[2020-02-16] MEDS: Docusate Sodium 100 MG Cap PO PRN (21:40)
[2020-02-16] MEDS: Lactated Ringers 1,000 ML IV SCH (21:49)
[2020-02-17] MEDS: Ketorolac 30 MG/ML SDV IVPUSH SCH ×2 (03:02→09:39)
[2020-02-17] MEDS: Lactated Ringers 1,000 ML IV SCH (05:00)
[2020-02-17] MEDS: Morphine PF 30 MG/30 ML PCA Vial IV SCH (05:28)
--- NOTE | 2020-02-17 08:45 | PN ---
DATE: 02/17/2020 Postoperative day #1. SUBJECTIVE: The patient is tolerating p.o. Has ambulated. Blue is in place. Pain is being controlled with BAND MASTER. The patient had mild episode of lightheadedness last night getting up from the bathroom. Denies any today. She denies any chest pain, shortness of breath. OBJECTIVE: Vital Signs: Temperature 97, heart rate 96, blood pressure 106/63. Lungs: Clear to auscultation bilaterally. Heart: S1 and S2. Regular rate and rhythm. Abdomen: Firm uterus around the umbilicus. Aquacel dressing has mild shadowing less than 2 cm on the left side of the dressing. Extremities: JOANNA hose and SCDs are on. I's and O's; did require a bolus and then within 2 hours had 350 mL urine out this morning at 6 a.m. Pending is a CBC. Last night, CBC revealed white cell count 24, hemoglobin 9.9, platelets 229, compared to predelivery hemoglobin of 11.5. ASSESSMENT: Postop day #1, status post primary low transverse , 2 layer uterine closure, due to nonreassuring status with confirmed placental abruption and complicated by uterine atony and hemorrhage with an EBL of 1000 mL requiring Hemabate, Methergine, Cytotec, TXA, and a B- London/box stitch placed in with surgery. PLAN: CBC today. We will follow up for any symptoms. Continue on BAND MASTER with goal to get her off this today and switch to oral medicines, and follow clinically and closely. Plans were discussed with patient, she understands and agrees with the above treatment plan. [facility] /[id number] [place]
[2020-02-17] MEDS: Docusate Sodium 100 MG Cap PO PRN ×2 (09:38→19:33)
[2020-02-17] MEDS: Prenatal Multivitamin with Calcium/Folic Acid/Iron Tab PO SCH (09:38)
[2020-02-17] MEDS: Simethicone 80 MG Tab.Chew PO SCH ×4 (09:38→21:37)
--- NOTE | 2020-02-17 11:36 | OR ---
DATE: 02/16/2020 PREOPERATIVE DIAGNOSIS: 1. Intrauterine at 40 and 1/7 weeks by 10 and 2/7 weeks ultrasound. 2. Abnormal vaginal bleeding. 3. Concerns with status becoming nonreassuring. 4. Group B Streptococcus negative. 5. History of low-lying posterior placenta - resolved on ultrasounds. 6. Mood disorder, on Wellbutrin and Prozac during the . 7. History of chronic lower back pain, on gabapentin with use in and this has been discussed with her in the past as well as side effects related to her child and for use in . 8. G2, P0-0-1-0. POSTOPERATIVE DIAGNOSES: 1. Intrauterine at 40 and 1/7 weeks by 10 and 2/7 weeks ultrasound - delivered. 2. Abnormal vaginal bleeding. 3. Concerns with status becoming nonreassuring. 4. Group B Streptococcus negative. 5. History of low-lying posterior placenta - resolved on ultrasounds. 6. Mood disorder, on Wellbutrin and Prozac during the . 7. History of chronic lower back pain, on gabapentin with use in and this has been discussed with her in the past as well as side effects related to her child and for use in . 8. G2, P0-0-1-0. 9. Placental abruption - suspected. 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 11.Uterine atony requiring Methergine, Hemabate IM x1 each, 800 mcg of Cytotec rectally, and 1 g of tranexamic acid, as well as a B-London box stitch placed with procedure. 12. hemorrhage with EBL of 1000 mL. PROCEDURES PERFORMED: NST followed by Cytotec x3, artificial rupture of membranes, and then subsequent primary low transverse with 2-layer uterine closure involving a B-London box stitch for uterine atony. ANESTHESIA: General. ESTIMATED BLOOD LOSS: 1000 mL. IV FLUIDS: 800 mL. URINE OUTPUT: 500 mL and clear yellow. START TIME: 1444. UTERINE INCISION: 1445. DELIVERY: 1446. STOP: 1517. FINDINGS: Female, score and weight pending with placental abruption suspected with vaginal bleeding noted with delivery with some minor old blood clot after and with delivery of the placenta as well as what appeared to be a developing Couvelaire uterus posterior lower uterine region. OPHTHALMIC MEDICAL ASSISTANT: Shawna Craft MD DESCRIPTION OF PROCEDURE IN DETAIL: After proper consent was obtained, the patient was brought to the operating room where general anesthesia was induced. Prior to this, abdomen was prepped and draped in a normal sterile fashion. The patient was placed in supine position with left lateral tilt. After anesthesia gave the okay, skin incision was made on the lower abdomen in transverse Pfannenstiel-type fashion. This was carried down the fascia and scored in the midline. Subcutaneous tissue was raked laterally bluntly and fascial incision was extended transversely as well as superior and inferiorly bluntly the rectus and pyramidalis muscles that were dissected from the fascia. Rectus muscles were then in the midline with blunt technique. Abdominal cavity was entered with blunt technique and incision was extended superiorly and inferiorly with blunt technique. Vishal O large retractor was then introduced and used. Vesicouterine peritoneum was identified, incised in transverse fashion with Metzenbaum scissors, and bladder flap was made digitally. A curvilinear incision was made on the lower uterine segment. Uterus was entered sharply. Clear fluid returned. Uterine incision was extended in a transverse fashion using blunt technique. vertex was then delivered through the incision followed by rest of the infant without difficulty. Mouth and nares were suctioned. Cord was doubly clamped and cut and infant was brought over to the team. Then, approximately 10 mL of cord blood was obtained for labs. Placenta then delivered with gentle cord traction and fundal massage with mild old blood clot noted with delivery of the placenta. Uterine cavity was then cleared of all blood clots and debris with lap sponge. Gonzalez clamps were used to grasp the uterine incision. This was closed in a running locked fashion and tied at lateral margins with 1-0 Vicryl. Uterine atony was noted during this time period, and Methergine, Hemabate, and Cytotec were called for. Methergine was given first, followed by Cytotec and Hemabate as well as tranexamic acid during this time. Second imbricating layer was then applied, tied at lateral margins with 1-0 Vicryl. First inspection of the uterine incision revealed hemostasis. Uterus was exteriorized for better visualization and posterior wall of external uterus revealed developing couvelaire uterus confirming abruption. Due to atony, and despite fundal massage, the above interventions as well as Pitocin increased per protocol, continued uterine atony was noted and decision was then made to proceed with B-London box type stitch. This was placed using 1 - 0 Vicryl and tightened down and placed without difficulty. Second inspection of the uterine incision revealed hemostasis as uterus was returned to the abdomen after box stitch was placed. Paracolic gutters were then cleared of all blood clots and debris with lap sponge. Anterior cul-de-sac was irrigated copiously and all blood clots were removed. Third and final inspection of the uterine incision and anterior cul-de - sac revealed hemostasis. Rectus muscles were then reapproximated in midline with [id number] stitch using 1-0 Vicryl. Subfascial tissue was found to be hemostatic and fascia was closed in a running fashion and tied at lateral margins with 0 looped PDS. Subcutaneous tissue was irrigated copiously. Hemostasis was reassured. Skin was reapproximated with medium henok with care involving the right lateral portion of the incision where tattoo was noted and was required to cut through with Pfannenstiel-type incision with stat nature of the . Semi firm uterus was noted at the umbilicus after this. Aquacel dressing was applied. Sponge, lap, and needle counts were correct. The patient received 2 g of Ancef preoperatively, Pitocin per protocol, as well as other medicines as above and will receive [employer] and possibly Toradol at the conclusion of the case for pain control. Mother and infant are currently stable at the time of dictation. [facility] /[id number] [place]
--- NOTE | 2020-02-17 13:12 | PN ---
DATE: 02/17/2020 Postop day #1, status post primary low-transverse . SUBJECTIVE: The patient noted lightheadedness today with rising. Did have stand there for a while before she felt better. She had lightheadedness yesterday. OBJECTIVE: Hemoglobin returns at 7.5. ASSESSMENT AND PLAN: Postoperative day #1, status post primary low-transverse section with 2-layer uterine closure complicated by uterine atony, hemorrhage, and now anemia of acute blood loss with symptoms. Therefore, we will treat with transfusion of 2 units of packed red blood cells. She had a type and cross match yesterday, so we will give those 2 units today. I did discuss the risks, benefits, alternatives, and complications involving blood transfusion, and verbal and written consents were obtained and questions were answered. We will proceed with blood transfusion when blood was ready and available. [facility] /[id number]
[2020-02-17] MEDS: Acetaminophen/oxyCODONE 325-5 MG Tab PO PRN ×2 (15:35→19:35)
[2020-02-17] MEDS: Ibuprofen 800 MG Tab PO PRN (19:33)
[2020-02-17] MEDS: Gabapentin 300 MG Cap PO SCH (22:09)
[2020-02-18] MEDS: Acetaminophen/oxyCODONE 325-5 MG Tab PO PRN ×6 (00:17→22:05)
[2020-02-18] MEDS: Ibuprofen 800 MG Tab PO PRN ×3 (05:57→22:04)
[2020-02-18] MEDS: Gabapentin 300 MG Cap PO SCH ×2 (08:39→18:19)
[2020-02-18] MEDS: Simethicone 80 MG Tab.Chew PO SCH ×4 (08:39→22:03)
[2020-02-18] MEDS: Ferrous Sulfate 325 MG Tab PO SCH (08:39)
[2020-02-18] MEDS: Docusate Sodium 100 MG Cap PO PRN ×2 (08:39→22:03)
[2020-02-18] MEDS: Prenatal Multivitamin with Calcium/Folic Acid/Iron Tab PO SCH (08:39)
[2020-02-18] MEDS: FLUoxetine 10 MG Cap PO SCH (08:39)
[2020-02-18] MEDS ORDERED: Oxytocin/Normal Saline 30 UNIT/500 ML BAG IV ONE (12:04)
--- NOTE | 2020-02-18 19:02 | PN ---
DATE: 02/18/2020 Postop day #2, status post primary low-transverse with 2-layer uterine closure with multiple interventions for atony including a B-London box stitch. SUBJECTIVE: The patient feels better after blood transfusion yesterday. She denies any chest pain, shortness of breath, or lightheadedness. She is tolerating p.o., was ambulating, urinating, and passing flatus. OBJECTIVE: Vital Signs: Temperature 98, heart rate 99, blood pressure 104/48, and respiratory rate 18. Lungs: Clear to auscultation bilaterally. Heart: S1, S2. Regular rate and rhythm. Genitourinary: Firm uterus, -1, below umbilicus. Aquacel dressing has minimal shadowing noted yesterday, but nothing increasing in size, frequency. Extremities: No calf pain. LABORATORY DATA: Today; white cell count 9.8, hemoglobin 9.4, and platelets 168. Hemoglobin yesterday was 7.5, with symptoms and was given 2 units of packed red blood cells at that time. ASSESSMENT AND PLAN: 1. Postoperative day #2, status post primary low-transverse section. 2. Uterine atony with multiple interventions required, please see previous notes, and associated with the below. 3. Anemia of acute blood loss, that was symptomatic with severe anemia. 2 units of packed red blood cells were given yesterday. Hemoglobin has return to a more stable state, and the patient is asymptomatic. We will follow for symptoms at this point in time. Recheck CBC tomorrow. Otherwise, we will continue to follow clinically and closely. In addition, we will start the patient on iron, and I did discuss with her use of her medicines including gabapentin, Wellbutrin, and fluoxetine in terms of breast feeding. Despite this, she wants to continue with and will follow clinically and closely in regard to her and herself. [facility] /[id number]
[2020-02-19] MEDS: Ibuprofen 800 MG Tab PO PRN (06:08)
[2020-02-19] MEDS: Acetaminophen/oxyCODONE 325-5 MG Tab PO PRN (06:08)
--- NOTE | 2020-02-19 08:42 | DISCH ---
ADMITTING DIAGNOSES: 1. Intrauterine at 40 and 1/7 weeks by 10 and 2/7 weeks ultrasound. 2. Group B Streptococcus negative. 3. History of low-lying posterior placenta, resolved on ultrasound. 4. Mood disorder, on Wellbutrin and Prozac. Discussed these medication adverse effects with as well as breast feeding. 5. History of pain, chronically in lower back. Gabapentin use during the discussed with patient as well as with breast feeding. 6. G2, P0-0-1-0. DISCHARGE DIAGNOSES: 1. Intrauterine at 40 and 1/7 weeks by 10 and 2/7 weeks ultrasound. 2. Group B Streptococcus negative. 3. History of low-lying posterior placenta, resolved on ultrasound. 4. Mood disorder, on Wellbutrin and Prozac. Discussed these medication adverse effects with as well as breast feeding. 5. History of pain, chronically in lower back. Gabapentin use during the discussed with patient as well as with breast feeding. 6. G2, P0-0-1-0. 7. Abnormal vaginal bleeding. 8. Concerns with status. 9. Placental abruption confirmed in surgery. 10.Uterine atony. Noted with , requiring Hemabate, Methergine, Cytotec, tranexamic acid and a B-London box-type stitch. 11.Posterior uterine wall developing Couvelaire uterus noted. 12.Anemia of acute blood loss, requiring 2 units of packed red blood cells with symptomatic anemia noted. 13. hemorrhage with EBL approximately 1000 mL. PROCEDURES PERFORMED: NST, Cytotec x3, artificial rupture of membranes and then subsequent primary low transverse with 2-layer uterine closure involving the above procedures with B London/box-type stitch. HISTORY OF PRESENT ILLNESS: Please see H and P. SUMMARY OF HOSPITAL COURSE: The patient was admitted on the above date with above diagnoses, underwent above procedures. After artificial rupture of membranes had significant amount of bleeding and concerns with status, was brought to the OR where she had a primary low transverse with 2-layer uterine closure with the B London box stitch under general anesthesia, complicated by uterine atony, given the above meds. Please see operative report for further details. EBL was 1000 mL. Postoperative day 1 and 2, patient was followed closely. Hemoglobin did drop down to a low of 7.5 on 02/17/2020. She was having symptoms. She did receive 2 units of packed red blood cells and hemoglobin was stable on 02/17 at 9.4, and on date of discharge at 9.2 with no symptoms noted. Date of discharge evaluation; the patient was tolerating p.o., was ambulating, urinating, passing flatus, and requesting discharge. PHYSICAL EXAMINATION: Vital Signs: Last set of vitals updated and listed in chart; temperature 98.4, heart rate 92, respiratory rate 18, blood pressure 101/58. Lungs: Clear to auscultation bilaterally. Heart: S1 and S2. Regular rate and rhythm. Genitourinary: Firm uterus, -2 below umbilicus. Aquacel dressing, mild tracing, but nothing new over the last 2 days. Extremities: Trace to 1+ pitting edema to proximal tibia. No calf pain. CONDITION ON DISCHARGE COMPARED TO CONDITION ON ADMISSION: Improved. DISCHARGE INSTRUCTIONS: 1. Diet as tolerated. 2. Activity: No lifting more than 20 pounds. No sit-ups or straining. Pelvic rest for the next 6 week with immediate return to fertility discussed with the patient. 3. Reason to return or go to the emergency room were discussed with the patient in detail including, but not limited to temperature greater than 100.4, foul-smelling discharge, red or tender breasts, or increased vaginal bleeding. DISCHARGE MEDICATIONS: 1. [id number] ibuprofen for pain. 2. Percocet 5/325, 1 to 2 q.6 hours p.r.n., #30. 3. Colace 100 mg b.i.d. p.r.n. 4. Iron sulfate 325 b.i.d. x6 weeks. Dispensed q.s., no refills. FOLLOWUP: 6 weeks . Discussed importance of followup in regard to her as well as ramifications of not doing so. She understands and agrees with the above treatment plan. Please see discharge paperwork for further details. [facility] /[id number]
[2020-02-19] MEDS: Gabapentin 300 MG Cap PO SCH (12:01)
[2020-02-19] MEDS: Ferrous Sulfate 325 MG Tab PO SCH (12:01)
[2020-02-19] MEDS: Prenatal Multivitamin with Calcium/Folic Acid/Iron Tab PO SCH (12:01)
[2020-02-19] MEDS: FLUoxetine 10 MG Cap PO SCH (12:02)
[2020-02-19] MEDS: Simethicone 80 MG Tab.Chew PO SCH (12:02)
== END 2020-02-19 10:30 | disposition home or self-care (01) | DRG 540 ==
LOC: DL.OBCHECK 00:04 → DL.OB 01:22 → OBSVTOIN 14:46
PROVIDERS: ADMIT Family Medicine; ATTEND Family Medicine
PROC: 10D00Z1 Extraction of Products of Conception, Low, Open Approach (ICD-10-PCS; principal; 2020-02-16)
PROC: 10907ZC Drainage of Amniotic Fluid, Therapeutic from Products of Conception, Via Natural or Artificial Opening (ICD-10-PCS; 2020-02-16)
PROC: 3E033VJ Introduction of Other Hormone into Peripheral Vein, Percutaneous Approach (ICD-10-PCS; 2020-02-16)
PROC: 30233N1 Transfusion of Nonautologous Red Blood Cells into Peripheral Vein, Percutaneous Approach (ICD-10-PCS; 2020-02-17)
DX: O48.0 Post-term pregnancy (principal); O45.93 Premature separation of placenta, unspecified, third trimester; Z37.0 Single live birth; O99.344 Other mental disorders complicating childbirth; F39 Unspecified mood [affective] disorder; O99.02 Anemia complicating childbirth; D62 Acute posthemorrhagic anemia; O72.1 Other immediate postpartum hemorrhage; Z3A.40 40 weeks gestation of pregnancy
CPT/HCPCS: 36415; 36430; 51702; 59409; 85027; 86850; 86900; 86901; 86920; 86922; 94010; A9270-GY; J0330; J0690; J1885; J2210; J2274; J2405; J2590; J2704; J3010; J7050; J7120; P9016

== ENCOUNTER 2020-09-03 12:45 | Emergency (ER) | payer BC, OTHER ==
[2020-09-03] MEDS ORDERED: Cyclobenzaprine 10 MG Tab PO ONE (13:14)
[2020-09-03] MEDS ORDERED: Orphenadrine 60 MG/2 ML Inj IM ONE (13:16)
[2020-09-03] MEDS ORDERED: Dexamethasone 4 MG/ML SDV IM ONE (13:16)
[2020-09-03] MEDS ORDERED: Ketorolac 30 MG/ML SDV IM ONE (13:17)
--- NOTE | 2020-09-03 13:18 | EDM.PDOC ---
ED HPI GENERAL MEDICAL PROBLEM - General Chief Complaint: Back Pain or Injury Stated Complaint: [id number] THREW BACK OUT Time Seen by Provider: 09/03/20 13:01 Source of Information: Reports: Patient, RN, RN Notes Reviewed History Limitations: Reports: No Limitations - History of Present Illness INITIAL COMMENTS - FREE TEXT/NARRATIVE: She presents to the ED via personal vehicle with complaints of lower back pain. Per patient report, the pain started Sunday (09/01/2020) and has progressively worsened since that time. 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 The patient reports a history of a bulging disc in the L4-L5 space for which she receives corticosteroid injections via Dr. Mays. She has not received these injections recently as she delivered her first baby in February 2020. The patient states she has an appointment with her primary care provider at [facility] this (09/09/2020) for a referral back to Dr. Mays. The patient states the pain originates in her midline lower back and radiates bilaterally into her anterior lower legs, stopping at the knee. She denies any recent injury to her back, including falls. She denies abdominal pain, dysuria, hematuria, melena, hematochezia, saddle paresthesia, or changes to her bowel and bladder pattern. The patient states she took 1 dose of "left over" Toradol from her last bout of acute back pain, which provided mild alleviation of symptoms. She denies cigarette smoking, alcohol use, or illicit drug use. Upper Back Pain Score (Numeric/FACES): 8 - Related Data Allergies Allergy/AdvReac Type Severity Reaction Status Date / Time ethinyl estradiol Allergy Other Verified 02/13/20 14:54 [From Previfem] norgestimate [From Previfem] Allergy Other Verified 02/13/20 14:54 Home Meds: Home Meds Gabapentin [Neurontin] 300 mg PO TID 08/19/17 [History] FLUoxetine [PROzac] 20 mg PO DAILY 04/03/19 [History] Pnv No.95/Ferrous Fum/Folic AC [ Vitamin Tablet] 1 each PO DAILY 04/03/19 [History] buPROPion HCL [Wellbutrin Xl] 150 mg PO DAILY 04/03/19 [History] Past Medical History - Past Health History Medical/Surgical History: Denies Medical/Surgical History HEENT History: Reports: None Cardiovascular History: Reports: None, Heart Murmur Respiratory History: Reports: None Gastrointestinal History: Reports: None Genitourinary History: Reports: UTI, Recurrent 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: , 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 Musculoskeletal History: Reports: Other (See Below) Other Musculoskeletal History: herniated disc Neurological History: Reports: None Psychiatric History: Reports: Anxiety, Depression Endocrine/Metabolic History: Reports: None Hematologic History: Reports: None Oncologic (Cancer) History: Reports: None Dermatologic History: Reports: None - Infectious Disease History Infectious Disease History: Reports: None - Past Surgical History Head Surgeries/Procedures: Reports: None HEENT Surgical History: Reports: Adenoidectomy, Tonsillectomy, Other (See Below) Other HEENT Surgeries/Procedures: wisdom teeth Social & Family History - Family History Family Medical History: Noncontributory - Tobacco Use Tobacco Use Status *Q: Never Tobacco User Second Hand Smoke Exposure: No - Caffeine Use Caffeine Use: Reports: Coffee - Recreational Drug Use Recreational Drug Use: No ED ROS GENERAL - Review of Systems Review Of Systems: Comprehensive ROS is negative, except as noted in HPI. ED EXAM,LOWER BACK PAIN/INJURY - Physical Exam Exam: See Below Exam Limited By: No Limitations General Appearance: Alert, WD/WN, Mild Distress Respiratory/Chest: No Respiratory Distress, Lungs Clear, Normal Breath Sounds, No Accessory Muscle Use, Chest Non-Tender Cardiovascular: Normal Peripheral Pulses, Regular Rate, Rhythm, No Edema, No Gallop, No JVD, No Murmur, No Rub GI/Abdominal: Normal Bowel Sounds, Soft, Non-Tender, No Distention, No Mass, Pelvis Stable Back Exam: Decreased Range of Motion, Muscle Spasm, Vertebral Tenderness. No: CVA Tenderness (L), CVA Tenderness (R) Extremities: Normal Inspection, Normal Range of Motion, No Pedal Edema, Normal Capillary Refill Neurological: Alert, Normal Mood/Affect, CN II-XII Intact, No Motor/Sensory Deficits Skin Exam: Warm, Dry, Intact, Normal Color, No Rash. No: Diaphoretic, Ecchymosis, Erythema, Mottled, Pallor, Petechiae, Rash Course - Vital Signs Last Recorded V/S: Last Vital Signs Temp 97.9 F 09/03/20 12:59 Pulse 80 09/03/20 12:59 Resp 18 09/03/20 12:59 BP 108/65 09/03/20 12:59 Pulse Ox 100 09/03/20 12:59 - Orders/Labs/Meds Meds: Medications Discontinued Medications Generic Name Dose Route Start Last Admin Trade Name Goyo PRN Reason Stop Dose Admin Cyclobenzaprine HCl 10 mg 09/03/20 13:14 Flexeril PO 09/03/20 13:15 ONETIME ONE Dexamethasone 10 mg 09/03/20 13:16 09/03/20 13:28 Dexamethasone IM 09/03/20 13:17 10 mg ONETIME ONE Administration Ketorolac Tromethamine 30 mg 09/03/20 13:17 09/03/20 13:24 Toradol IM 09/03/20 13:18 30 mg ONETIME ONE Administration Orphenadrine Citrate 60 mg 09/03/20 13:16 09/03/20 13:26 Norflex IM 09/03/20 13:17 60 mg ONETIME ONE Administration - Re-Assessments/Exams Free Text/Narrative Re-Assessment/Exam: 09/03/20 13:54 Patient states improvement in pain with IM injections. During discharge teaching she states she has left over Toradol at home and would not like an additional prescription. Discussed no heavy lifting or twisting. Discussed application of heat and importance of movement. Departure - Departure Time of Disposition: 13:51 Disposition: Home, Self-Care 01 Condition: Good Clinical Impression: Lower back pain Qualifiers: Chronicity: chronic Back pain laterality: bilateral Sciatica presence: with sci atica Sciatica laterality: bilateral sciatica Qualified Code(s): M54.42 - Lumbago with sciatica, left side; M54.41 - Lumbago with sciatica, right side; G89.29 - Other chronic pain - Discharge Information *PRESCRIPTION DRUG MONITORING PROGRAM REVIEWED*: Not Applicable *COPY OF PRESCRIPTION DRUG MONITORING REPORT IN PATIENT SARAH: Not Applicable Instructions: Back Injury Prevention, [id number], Back Exercises, [id number], Chronic Back Pain, [id number] Forms: ED Department Discharge Additional Instructions: Rx: Norflex Take your Toradol, as previously prescribed. Follow up with your PCP, as previously scheduled, for referral to pain management. Sepsis Event Note (ED) - Evaluation Sepsis Screening Result: No Definite Risk - Focused Exam Vital Signs: Vital Signs Temp Pulse Resp BP Pulse Ox 09/03/20 12:59 97.9 F 80 18 108/65 100
== END 2020-09-03 14:07 | disposition home or self-care (01) ==
LOC: DL.ED 12:45
DX: M54.41 Lumbago with sciatica, right side (principal); M54.42 Lumbago with sciatica, left side; F41.9 Anxiety disorder, unspecified; F32.9 Major depressive disorder, single episode, unspecified; Z79.899 Other long term (current) drug therapy; Z88.8 Allergy status to other drugs, medicaments and biological substances
CPT/HCPCS: 96372; 99283; J1100; J1885; J2360

== ENCOUNTER 2021-03-28 14:43 | Emergency (ER) | payer BC, OTHER ==
[2021-03-28] MEDS ORDERED: Orphenadrine 60 MG/2 ML Inj IM ONE (15:04)
[2021-03-28] MEDS ORDERED: Ketorolac 30 MG/ML SDV IM ONE (15:05)
--- NOTE | 2021-03-28 15:42 | EDM.PDOC ---
ED HPI GENERAL MEDICAL PROBLEM - General Chief Complaint: Back Pain or Injury Stated Complaint: [id number] HERNIATED DISCS Time Seen by Provider: 03/28/21 14:55 Source of Information: Reports: Patient, Old Records, RN, RN Notes Reviewed History Limitations: Reports: No Limitations - History of Present Illness INITIAL COMMENTS - FREE TEXT/NARRATIVE: Yfn is a 25 y/o female with a history of lumbar disk herniation to L4-L5 who presents to the ED via personal vehicle with complaints of low back pain. 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 She notes she had to mow over several large bumps which caused her immediate pain in the lower back. She characterizes the pain as spasming in nature and notes it radiates bilaterally across her lower back into both lower extremities. She denies saddle paraesthesia, incontinence of bowel/bladder, or loss of motor/sensory function to the distal lower extremities. She does attest to frequency with urination; denies dysuria, hematuria, or suprapubic tenderness. The patient reports she underwent an MRI on 03/01/21 of the lumbosacral spine and is scheduled to meet with a neurosurgeon at [facility] in two days, 03/30/21. Lower Back Pain Score (Numeric/FACES): 3 - Related Data Allergies Allergy/AdvReac Type Severity Reaction Status Date / Time ethinyl estradiol Allergy Other Verified 02/13/20 14:54 [From Previfem] norgestimate [From Previfem] Allergy Other Verified 02/13/20 14:54 Home Meds: Home Meds Gabapentin [Neurontin] 300 mg PO TID 08/19/17 [History] FLUoxetine [PROzac] 20 mg PO DAILY 04/03/19 [History] buPROPion HCL [Wellbutrin Xl] 150 mg PO DAILY 04/03/19 [History] Past Medical History - Past Health History Medical/Surgical History: Denies Medical/Surgical History HEENT History: Reports: None Cardiovascular History: Reports: None, Heart Murmur Respiratory History: Reports: None Gastrointestinal History: Reports: None Genitourinary History: Reports: UTI, Recurrent 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: , Spontaneous Musculoskeletal History: Reports: Other (See Below) Other Musculoskeletal History: herniated disc Neurological History: Reports: None Psychiatric History: Reports: Anxiety, Depression Endocrine/Metabolic History: Reports: None Hematologic History: Reports: None Oncologic (Cancer) History: Reports: None Dermatologic History: Reports: None - Infectious Disease History Infectious Disease History: Reports: None - Past Surgical History Head Surgeries/Procedures: Reports: None HEENT Surgical History: Reports: Adenoidectomy, Tonsillectomy, Other (See Below) Other HEENT Surgeries/Procedures: wisdom teeth Social & Family History - Family History Family Medical History: No Pertinent Family History - Caffeine Use Caffeine Use: Reports: Coffee ED ROS GENERAL - Review of Systems Review Of Systems: Comprehensive ROS is negative, except as noted in HPI. ED EXAM,LOWER BACK PAIN/INJURY - Physical Exam Exam: See Below Exam Limited By: No Limitations General Appearance: Alert, Mild Distress (From low back pain) Eye Exam: Bilateral Eye: EOMI, Normal Inspection, PERRL (3mm) Throat/Mouth: Normal Inspection, Normal Oropharynx, Normal Voice, No Airway Compromise Head: Atraumatic, Normocephalic Neck: Normal Inspection, Supple, Non-Tender, Full Range of Motion. No: Lymphadenopathy (L), Lymphadenopathy (R) Respiratory/Chest: No Respiratory Distress, Lungs Clear, Normal Breath Sounds, No Accessory Muscle Use, Chest Non-Tender Cardiovascular: Normal Peripheral Pulses, Regular Rate, Rhythm, No Edema, No Gallop, No JVD, No Murmur, No Rub GI/Abdominal: Normal Bowel Sounds, Soft, Non-Tender, No Distention, No Mass, Pelvis Stable. No: Guarding, Rigid, Rebound (Female) Exam: Deferred Rectal (Female) Exam: Deferred Back Exam: CVA Tenderness (R), Decreased Range of Motion, Muscle Spasm, Vertebral Tenderness. No: CVA Tenderness (L), Paraspinal Tenderness Extremities: No Pedal Edema, Normal Capillary Refill, Limited Range of Motion (To bilateral lower extremities d/t low back pain). No: Joint Swelling, Leg Pain Neurological: Alert, Normal Mood/Affect, Normal Dorsiflexion, CN II-XII Intact, Normal Plantar Flexion, Normal Reflexes, No Motor/Sensory Deficits, Oriented x 3, Straight Leg Raise (L), Straight Leg Raise (R), Difficulty Walking (Due to low pack pain). No: Saddle Anesthesia Psychiatric: Normal Affect, Normal Mood Skin Exam: Warm, Dry, Intact, Normal Color, No Rash. No: Ecchymosis, Erythema, Jaundice, Mottled, Pallor, Petechiae Course - Vital Signs Last Recorded V/S: Last Vital Signs Temp 98.7 F 03/28/21 15:15 Pulse 99 03/28/21 15:15 Resp 16 03/28/21 15:15 BP 125/77 03/28/21 15:15 Pulse Ox 99 03/28/21 15:15 - Orders/Labs/Meds Meds: Medications Discontinued Medications Generic Name Dose Route Start Last Admin Trade Name Gutierrezq PRN Reason Stop Dose Admin Ketorolac Tromethamine 60 mg 03/28/21 15:05 03/28/21 15:39 Ketorolac 30 Mg/Ml Sdv IM 03/28/21 15:06 60 mg ONETIME ONE Administration Orphenadrine Citrate 60 mg 03/28/21 15:04 03/28/21 15:39 Orphenadrine 60 Mg/2 Ml Inj IM 03/28/21 15:05 60 mg ONETIME ONE Administration - Re-Assessments/Exams Free Text/Narrative Re-Assessment/Exam: 03/28/21 Discussed findings of examination with patient. Will not obtain repeat imaging as MRI was performed one month prior and no significant injury was sustained between then and now. Will treat acute pain with Norflex 60mg IM and Ketorolac 60mg IM. Patient verbalized improvement in pain following Norflex IM and Ketorolac IM. Will discharge with instructions to keep appointment with neurosurgeon. Red flag signs and symptoms which would warrant reevaluation reviewed. Patient verbalized understanding and agreement with the plan of care. Departure - Departure Time of Disposition: 16:06 Disposition: Home, Self-Care 01 Condition: Fair Clinical Impression: History of herniated intervertebral disc, Muscle spasm Low back pain Qualifiers: Chronicity: chronic Back pain laterality: bilateral Sciatica presence: with sciatica Sciatica laterality: bilateral sciatica Qualified Code(s): M54.42 - Lumbago with sciatica, left side - Discharge Information *PRESCRIPTION DRUG MONITORING PROGRAM REVIEWED*: Not Applicable *COPY OF PRESCRIPTION DRUG MONITORING REPORT IN PATIENT SARAH: Not Applicable Instructions: Muscle Cramps and Spasms, [id number], Chronic Back Pain, [id number] Referrals: PCP,None [Primary Care Provider] - Forms: ED Department Discharge Additional Instructions: 1.) Keep your previously scheduled appointment with your neurosurgeon at [facility]. 2.) You may take your previously prescribed Flexeril for acute back pain. 3.) You may take ibuprofen (Advil/Motrin) 400mg every six hours, as pain persists. You may also take acetaminophen (Tylenol) 650mg every six hours, as pain persists. You may stagger these medications so you are receiving a dose every three hours. Do not take ibuprofen today as your received a high dose of a medication similar to this. 4.) Drink plenty of water to stay hydrated. 5.) Follow up with your primary care provider with any continued urinary frequency, or should you develop pain with urination, blood with urination, or suprapubic tenderness.
== END 2021-03-28 16:20 | disposition home or self-care (01) ==
LOC: DL.ED 14:43
DX: M54.42 Lumbago with sciatica, left side (principal); M62.830 Muscle spasm of back; Z88.8 Allergy status to other drugs, medicaments and biological substances; Z79.899 Other long term (current) drug therapy
CPT/HCPCS: 96372; 99283; J1885; J2360

== ENCOUNTER 2021-06-22 09:46 | Emergency (ER) | payer BC, OTHER ==
[2021-06-22] MEDS ORDERED: methylPREDNISolone Sodium Succinate 125 MG/2 ML SDV IVPUSH ONE (10:20)
[2021-06-22] MEDS ORDERED: HYDROmorphone 0.5 MG/0.5 ML Syringe IVPUSH ONE (10:20)
--- NOTE | 2021-06-22 10:40 | EDM.PDOC ---
ED HPI GENERAL MEDICAL PROBLEM - General Chief Complaint: Back Pain or Injury Stated Complaint: [id number] BAD BACK PAIN Time Seen by Provider: 06/22/21 10:05 Source of Information: Reports: Patient History Limitations: Reports: No Limitations - History of Present Illness INITIAL COMMENTS - FREE TEXT/NARRATIVE: This 26 yo female patient reports to the ED with an acute increase of low back pain. The patient does have a history of numerous lower back issues and is scheduled for surgery in October. The patient reports she started to experience increased pain yesterday, but today her pain got too bad for her to be able to walk down her stairs. The patient reports she took Tylenol this morning at about 0800 with very little symptom improvement. The patient attempted to get an appointment in the clinic, but was advised to come to the ED as there were no clinic appointment times available. The patient currently rates her pain at a 9/10 and would be happy if her pain was down to a 7/10. The patient has been taking her Gabapentin as prescribed and also took a Flexeril. Onset Date: 06/21/21 Duration: Constant, Getting Worse Location: Reports: Back (lower back ratiating to her legs) Quality: Reports: Ache, Sharp, Stabbing Severity: Severe Improves with: Reports: Medication (Minimal improvement with Tylenol this morning. 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 low back Pain Score (Numeric/FACES): 9 - Related Data Allergies Allergy/AdvReac Type Severity Reaction Status Date / Time ethinyl estradiol Allergy Other Verified 06/22/21 10:07 [From Previfem] norgestimate [From Previfem] Allergy Other Verified 06/22/21 10:07 Home Meds: Home Meds Gabapentin [Neurontin] 300 mg PO TID 08/19/17 [History] FLUoxetine [PROzac] 20 mg PO DAILY 04/03/19 [History] buPROPion HCL [Wellbutrin Xl] 150 mg PO DAILY 04/03/19 [History] Cyclobenzaprine [Flexeril] 10 mg PO TID PRN 06/22/21 [History] Past Medical History - Past Health History Medical/Surgical History: Denies Medical/Surgical History HEENT History: Reports: None Cardiovascular History: Reports: None, Heart Murmur Respiratory History: Reports: None Gastrointestinal History: Reports: None Genitourinary History: Reports: UTI, Recurrent 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: , 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 Musculoskeletal History: Reports: Other (See Below) Other Musculoskeletal History: herniated disc Neurological History: Reports: None Psychiatric History: Reports: Anxiety, Depression Endocrine/Metabolic History: Reports: None Hematologic History: Reports: None Immunologic History: Reports: None Oncologic (Cancer) History: Reports: None Dermatologic History: Reports: None - Infectious Disease History Infectious Disease History: Reports: None - Past Surgical History Head Surgeries/Procedures: Reports: None HEENT Surgical History: Reports: Adenoidectomy, Tonsillectomy, Other (See Below) Other HEENT Surgeries/Procedures: wisdom teeth Social & Family History - Family History Family Medical History: No Pertinent Family History - Tobacco Use Tobacco Use Status *Q: Never Tobacco User Second Hand Smoke Exposure: No - Caffeine Use Caffeine Use: Reports: Coffee, Energy Drinks - Recreational Drug Use Recreational Drug Use: No ED ROS GENERAL - Review of Systems Review Of Systems: Comprehensive ROS is negative, except as noted in HPI. ED EXAM,LOWER BACK PAIN/INJURY - Physical Exam Exam: See Below Exam Limited By: No Limitations General Appearance: Alert, WD/WN, Moderate Distress Eye Exam: Bilateral Eye: EOMI, Normal Inspection, PERRL Ears: Normal External Exam, Normal Canal, Hearing Grossly Normal, Normal TMs Nose: Normal Inspection, Normal Mucosa, No Blood Throat/Mouth: Normal Inspection, Normal Lips, Normal Teeth, Normal Gums, Normal Oropharynx, Normal Voice, No Airway Compromise Head: Atraumatic, Normocephalic Neck: Normal Inspection, Supple, Non-Tender, Full Range of Motion Respiratory/Chest: No Respiratory Distress, Lungs Clear, Normal Breath Sounds, No Accessory Muscle Use, Chest Non-Tender Cardiovascular: Normal Peripheral Pulses, Regular Rate, Rhythm, No Edema, No Gallop, No JVD, No Murmur, No Rub GI/Abdominal: Normal Bowel Sounds, Soft, Non-Tender, No Organomegaly, No Distention, No Abnormal Bruit, No Mass (Female) Exam: Deferred Rectal (Female) Exam: Deferred Back Exam: Paraspinal Tenderness, Vertebral Tenderness (lower back ), Other (radiates to bilateral lower extremities) Extremities: Limited Range of Motion Neurological: Straight Leg Raise (L) (increased pain), Straight Leg Raise (R) (increased pain), Difficulty Walking (due to lower back pain) Psychiatric: Normal Affect, Normal Mood Skin Exam: Warm, Dry, Intact, Normal Color, No Rash Lymphatic: No Adenopathy Course - Vital Signs Last Recorded V/S: Last Vital Signs Temp 97.9 F 06/22/21 10:01 Pulse 75 06/22/21 10:01 Resp 20 06/22/21 10:01 BP 113/65 06/22/21 10:01 Pulse Ox 99 06/22/21 10:01 - Orders/Labs/Meds Meds: Medications Discontinued Medications Generic Name Dose Route Start Last Admin Trade Name Goyo PRN Reason Stop Dose Admin Hydromorphone HCl 0.5 mg 06/22/21 10:20 06/22/21 10:30 Hydromorphone 0.5 Mg/0.5 Ml Syringe IVPUSH 06/22/21 10:21 0.5 mg ONETIME ONE Administration Methylprednisolone Sodium Succinate 125 mg 06/22/21 10:20 06/22/21 10:30 Methylprednisolone Sodium Succinate 125 Mg/2 Ml Sdv IVPUSH 06/22/21 10:21 125 mg ONETIME ONE Administration Departure - Departure Time of Disposition: 10:55 Disposition: Home, Self-Care 01 Condition: Fair Clinical Impression: Acute exacerbation of chronic low back pain - Discharge Information *PRESCRIPTION DRUG MONITORING PROGRAM REVIEWED*: Not Applicable *COPY OF PRESCRIPTION DRUG MONITORING REPORT IN PATIENT SARAH: Not Applicable Instructions: Chronic Back Pain, [id number], Pain Medicine Instructions, [id number] Forms: ED Department Discharge Care Plan Goals: The patient was advised of the examination results during the visit. The patient was given an IV dose of SoluMedrol and Dilaudid while in the ED with symptom improvement. The patient as discharged with a script for Prednisone (20 mg) #10 to take 2 by mouth daily for 5 days and [place] (10/325) #6 to take 1 by mouth every 6 hours as needed for pain. If the patient has any additional symptoms or concerns, the patient should either return to the emergency department or visit her primary care facility. Sepsis Event Note (ED) - Evaluation Sepsis Screening Result: No Definite Risk - Focused Exam Vital Signs: Vital Signs Temp Pulse Resp BP Pulse Ox 06/22/21 10:01 97.9 F 75 20 113/65 99
== END 2021-06-22 11:05 | disposition home or self-care (01) ==
LOC: DL.ED 09:46
DX: G89.29 Other chronic pain (principal); M54.5 Low back pain; Z88.8 Allergy status to other drugs, medicaments and biological substances
CPT/HCPCS: 96374; 96375; 99283; J1170; J2930

== ENCOUNTER 2021-11-15 14:51 | Emergency (ER) | payer BC, OTHER ==
[2021-11-15 16:19] LABS: PTT,PARTIAL THROMBOPLSTIN TIME 25.2 SEC (22.0-34.0)
== END 2021-11-15 17:35 | disposition home or self-care (01) ==
LOC: DL.ED 14:51
DX: M79.662 Pain in left lower leg (principal); Z88.8 Allergy status to other drugs, medicaments and biological substances
CPT/HCPCS: 36415; 85025; 85610; 85730; 86140; 93971; 99284-25